=== PATIENT | female | born 1960 | race Caucasian/White ===

== ENCOUNTER 2024-11-03 06:10 | Inpatient (IN) | payer MEDICARE, MEDICAID ==
[2024-11-03] VITALS (8 sets, daily range): BP systolic 136–159; BP diastolic 63–85; TEMP 96.6–98.8; O2SAT 96–100
[~2024-11-03] VITALS: Ht 172.7 cm; Wt 139.3 kg
[~2024-11-03 06:10] MED LIST: ALBU2.5V10 INH; APAP325T4 PO; BIOT5TAB3 PO; BUSP10TA PO; CVS5000S2 PO; DULO1CAP6 PO; FLUT1BLS22 IH; HYDR200T46 PO; IPRA0.00 INH; LEVO25TA5 PO; LEVO2TA PO; LINZ72CA PO; MAGN64TASA PO; MECL-86 PO; METO1TAB32 PO; MONT10TA97 PO; N-ACCAP PO; PANT20TA6 PO; PROBCAP14 PO; REFR0.5D8 OU; RIZA10TA58 PO; SPIR50TA4 PO; THERTAB52 PO; VENTAER INH; VITA100093 PO; [UNRECOGNIZED DRUG - OTHER] OU; ceFAZolin SOD 2 GM in IV 1 EA IV ONE
[2024-11-03] MEDS: NS (Normal Saline) 0.9% 1,000 ML IV SCH (07:40)
[2024-11-03] MEDS ORDERED: PERCOCET 5MG/325MG TAB PO PRN (07:40)
[2024-11-03] MEDS ORDERED: busPIRone 10 MG TAB PO PRN (07:40)
[2024-11-03] MEDS ORDERED: ALBUTEROL 90 MCG/ACT 8GM HFA INHALER INH PRN (07:40)
[2024-11-03] MEDS ORDERED: COMBIVENT RESPIMAT 100-20MCG INHALER 4GM INH PRN (07:40)
[2024-11-03] MEDS ORDERED: ACETAMINOPHEN 325 MG TAB PO PRN (07:40)
[2024-11-03] MEDS: ceFAZolin SOD 3 GM in DEXTROSE 5% (D5W) MINI-BAG PLU 1... IV ONE (07:40)
[2024-11-03] MEDS ORDERED: propofoL 200 MG/20 ML VIAL As Ordered ONE (08:12)
[2024-11-03] MEDS ORDERED: MIDAZOLAM INJ 2MG/2ML VIAL As Ordered ONE (08:12)
[2024-11-03] MEDS ORDERED: SUGAMMADEX SODIUM 500 MG/5 ML VIAL (BRIDION) As Ordered ONE (08:12)
[2024-11-03] MEDS ORDERED: LIDOCAINE 2% 100MG/5ML SDV (FOR ANES.) As Ordered ONE (08:12)
[2024-11-03] MEDS ORDERED: fentaNYL 250 MCG/5 ML INJECTION As Ordered ONE (08:12)
[2024-11-03] MEDS ORDERED: dexmedeTOMIDine (4MCG/ML)200MCG/50ML BTL (PRECEDEX) As Ordered ONE (08:12)
[2024-11-03] MEDS ORDERED: ROCURONIUM BROMIDE 50MG/5ML VIAL As Ordered ONE (08:12)
[2024-11-03] MEDS ORDERED: ONDANSETRON 4MG 2ML VIAL As Ordered ONE (08:12)
[2024-11-03] MEDS ORDERED: ACETAMINOPHEN 1000MG/100ML IV BAG As Ordered ONE (08:13)
[2024-11-03] MEDS ORDERED: DESFLURANE 240 ML INHALANT As Ordered ONE (08:25)
[2024-11-03] MEDS: DOCUSATE SODIUM 100MG CAPSULE PO SCH (09:00)
[2024-11-03] MEDS: MANNITOL 25% 12.5GM 50ML VIAL As Ordered ONE (09:00)
[2024-11-03] MEDS ORDERED: BREO ELLIPTA INH SCH (09:00)
[2024-11-03] MEDS ORDERED: [UNRECOGNIZED DRUG - OTHER] INH SCH (09:00)
[2024-11-03] MEDS ORDERED: HYDROmorphone HCL 2MG/ML 1ML VIAL As Ordered ONE (10:07)
[2024-11-03] MEDS ORDERED: MORPHINE 2 MG/ML 1ML VIAL IV PRN (11:25)
[2024-11-03] MEDS: LIDOCAINE 1% SDV 30ML VIAL As Ordered ONE (11:30)
[2024-11-03] MEDS: LR 1,000 ML IV SCH (11:59)
[2024-11-03] MEDS: fentaNYL 100 MCG/2 ML INJECTION IV PRN (11:59)
[2024-11-03] MEDS: oxyCODONE 5MG TAB PO PRN (12:12)
[2024-11-03] MEDS: ONDANSETRON 4MG 2ML VIAL IV PRN ×2 (12:21→20:47)
[2024-11-03 12:44] LABS: HEMATOCRIT 39.8 % (36.0-47.0); HEMOGLOBIN 13.2 g/dl (12.0-15.5); MEAN CORPUSCULAR HEMOGLOBIN 31.5 pg (27.0-33.0); MEAN CORPUSCULAR HGB CONC 33.2 g/dl (32.0-36.5); PLATELET COUNT, AUTOMATED 175 10^3/uL (150-450); RED BLOOD COUNT 4.19 10^6/uL (4.00-5.40); WHITE BLOOD COUNT 7.1 10^3/uL (4.0-10.0)
[2024-11-03 13:13] LABS: BLOOD UREA NITROGEN 5 MG/DL (9-23); CALCIUM LEVEL 8.3 MG/DL (8.3-10.6); CARBON DIOXIDE LEVEL 25 MMOL/L (20-31); CHLORIDE LEVEL 110 MMOL/L (98-107); CREATININE FOR GFR 0.62 MG/DL (0.55-1.30); GLOMERULAR FILTRATION RATE > 60.0 (>45); GLUCOSE, FASTING 132 MG/DL (74-106); SODIUM LEVEL 142 MMOL/L (136-145)
[2024-11-03] MEDS: PROMETHAZINE 25MG/ML 1ML VIAL IV PRN (13:23)
[2024-11-03] MEDS ORDERED: fentaNYL 100 MCG/2 ML INJECTION IV PRN (13:40)
[2024-11-03] MEDS: MORPHINE 2 MG/ML 1ML VIAL IV PRN (13:41)
[2024-11-03] MEDS: ceFAZolin SOD 1 GM in DEXTROSE 5% (D5W) ADV/MINI-BAG 50 ML IV SCH (15:14)
[2024-11-03] MEDS ORDERED: FURO20TA2 PO (16:20)
[2024-11-03] MEDS ORDERED: PRED5TA PO (16:21)
[2024-11-03] MEDS ORDERED: HOME MED LIST COMPLETE! XX SCH (16:25)
[2024-11-03] MEDS: SPIRONOLACTONE 50 MG TAB PO SCH (16:52)
[2024-11-03] MEDS: PERCOCET 5MG/325MG TAB PO PRN (16:53)
[2024-11-04 01:07] VITALS: BP 129/61; TEMP 97.7; O2SAT 97
[2024-11-04 04:30] VITALS: BP 136/61; TEMP 98.2; O2SAT 97
[2024-11-04 05:10] LABS: HEMATOCRIT 37.3 % (36.0-47.0); HEMOGLOBIN 12.1 g/dl (12.0-15.5); MEAN CORPUSCULAR HEMOGLOBIN 30.8 pg (27.0-33.0); MEAN CORPUSCULAR HGB CONC 32.4 g/dl (32.0-36.5); MEAN CORPUSCULAR VOLUME 94.9 fl (80.0-96.0); PLATELET COUNT, AUTOMATED 206 10^3/uL (150-450); RED BLOOD COUNT 3.93 10^6/uL (4.00-5.40)
[2024-11-04] MEDS: LEVOTHYROXINE 25MCG TABLET (0.025MG) PO SCH (05:23)
[2024-11-04] MEDS: LEVOTHYROXINE 100MCG TABLET (0.1MG) PO SCH (05:23)
[2024-11-04 05:40] LABS: BLOOD UREA NITROGEN 5 MG/DL (9-23); CALCIUM LEVEL 8.6 MG/DL (8.3-10.6); CARBON DIOXIDE LEVEL 30 MMOL/L (20-31); CHLORIDE LEVEL 110 MMOL/L (98-107); CREATININE FOR GFR 0.67 MG/DL (0.55-1.30); GLOMERULAR FILTRATION RATE > 60.0 (>45); GLUCOSE, FASTING 122 MG/DL (74-106); POTASSIUM SERUM 4.4 MMOL/L (3.5-5.1); SODIUM LEVEL 143 MMOL/L (136-145)
[2024-11-04 08:00] VITALS: BP 135/60; TEMP 97.7; O2SAT 97
[2024-11-04] MEDS: PANTOPRAZOLE 20 MG TAB PO SCH (08:36)
[2024-11-04] MEDS: DULoxetine 30MG CAPSULE (CYMBALTA) PO SCH (08:36)
[2024-11-04 08:37] VITALS: BP 176/72
[2024-11-04] MEDS: METOPROLOL SUCC *XL* 25MG TAB (TopROL *XL*) PO SCH (08:37)
[2024-11-04 08:45] VITALS: O2SAT 94
[2024-11-04 12:00] VITALS: BP 159/85; TEMP 97.7; O2SAT 92
[2024-11-04] MEDS ORDERED: COLA100C5 PO (12:32)
[2024-11-04] MEDS ORDERED: UNRESOLVED PATIENT OWN MED ORDER XX SCH (21:00)
== END 2024-11-04 14:56 | disposition home or self-care (01) | DRG 658 ==
LOC: M OR 06:10 → M MSPAV 14:04
PROVIDERS: ADMIT Urology; ATTEND Urology
PROC: 8E0W4CZ Robotic Assisted Procedure of Trunk Region, Percutaneous Endoscopic Approach (ICD-10-PCS; 2024-11-03)
PROC: 0TB14ZZ Excision of Left Kidney, Percutaneous Endoscopic Approach (ICD-10-PCS; principal; 2024-11-03 07:30)
DX: C64.2 Malignant neoplasm of left kidney, except renal pelvis (principal); I10 Essential (primary) hypertension; K21.9 Gastro-esophageal reflux disease without esophagitis; E78.2 Mixed hyperlipidemia; F41.1 Generalized anxiety disorder; G43.909 Migraine, unspecified, not intractable, without status migrainosus; M79.7 Fibromyalgia; M19.90 Unspecified osteoarthritis, unspecified site; G47.33 Obstructive sleep apnea (adult) (pediatric); E66.01 Morbid (severe) obesity due to excess calories; Z83.3 Family history of diabetes mellitus; Z79.890 Hormone replacement therapy; Z79.899 Other long term (current) drug therapy; Z98.84 Bariatric surgery status

== ENCOUNTER → 2025-05-24 | Outpatient (CLI) | payer MEDICARE, MEDICAID ==
[~2025-05-24] MED LIST changes: +COLA100C5 PO; +FURO20TA2 PO; +PRED5TA PO; +PROHANCE 279.3MG/ML 15ML VIAL ONE; +PROHANCE 279.3MG/ML 5ML VIAL ONE; -ceFAZolin SOD 2 GM in IV 1 EA IV ONE
== END ==
LOC: M PLAIMG 14:56
PROVIDERS: ATTEND Nurse Practitioner
DX: Z91.89 Other specified personal risk factors, not elsewhere classified (principal); R92.313 Mammographic fatty tissue density, bilateral breasts; R92.2 Inconclusive mammogram
CPT/HCPCS: A9576; C8908